=== PATIENT | female | born 1970 | race American Indian/Alaskan Native ===

== ENCOUNTER 2016-05-02 07:56 | Outpatient (CLI) | payer OTHER, MEDICAID ==
[2016-05-06 08:23] LABS: TESTOSTERONE FREE 0.8 pg/mL (0.1-6.4)
== END 2016-05-02 07:57 | disposition home or self-care (01) ==
LOC: LAB 07:56
DX: E28.9 Ovarian dysfunction, unspecified (principal)
CPT/HCPCS: 36415; 82670; 83001; 84144; 84146; 84402; 84443; 84702

== ENCOUNTER 2016-06-01 06:16 | Outpatient (CLI) | payer OTHER, MEDICAID | END 2016-06-01 06:17 | disposition home or self-care (01) | LOC: LAB 06:16 | DX: N97.9 Female infertility, unspecified (principal) | CPT/HCPCS: 36415; 84144; 84702 ==

== ENCOUNTER 2016-06-04 13:59 | Outpatient (CLI) | payer OTHER, MEDICAID | END 2016-06-04 14:00 | disposition home or self-care (01) | LOC: LAB 13:59 | DX: Z32.01 Encounter for pregnancy test, result positive (principal) | CPT/HCPCS: 36415; 84144; 84443; 84702 ==

== ENCOUNTER 2017-06-05 08:19 | Outpatient (CLI) | payer MEDICAID | END 2017-06-05 08:20 | disposition home or self-care (01) | LOC: LAB 08:19 | PROVIDERS: ATTEND Obstetrics & Gynecology Reproductive Endocrinology | DX: N97.9 Female infertility, unspecified (principal); I10 Essential (primary) hypertension | CPT/HCPCS: 36415; 84702 ==

== ENCOUNTER 2017-06-11 08:58 | Outpatient (CLI) | payer MEDICAID | END 2017-06-11 08:59 | disposition home or self-care (01) | LOC: LAB 08:58 | PROVIDERS: ATTEND Obstetrics & Gynecology Reproductive Endocrinology | DX: N97.9 Female infertility, unspecified (principal) | CPT/HCPCS: 36415; 84702 ==